=== PATIENT | male | born 1955 | race African-American/Black ===

== ENCOUNTER 2019-05-18 09:04 | Emergency (ER) | payer BC ==
[~2019-05-18] VITALS: Ht 175.3 cm; Wt 117.0 kg
[2019-05-18] MEDS ORDERED: IBUPROFEN 600MG TABLET PO ONE (10:30)
[2019-05-18 10:39] VITALS: BP 129/90
== END 2019-05-18 11:58 | disposition home or self-care (01) ==
LOC: ER 09:04
DX: S82.831A Other fracture of upper and lower end of right fibula, initial encounter for closed fracture (principal); I10 Essential (primary) hypertension; J45.909 Unspecified asthma, uncomplicated; X50.1XXA Overexertion from prolonged static or awkward postures, initial encounter; Y93.89 Activity, other specified; Y92.018 Other place in single-family (private) house as the place of occurrence of the external cause
CPT/HCPCS: 29515; 73610; 99283; Z7610